=== PATIENT | female | born 1945 | race African-American/Black ===

== ENCOUNTER 2017-11-16 00:32 | Emergency (ER) | payer MEDICARE, BC ==
[~2017-11-16] VITALS: Ht 149.9 cm; Wt 50.0 kg
[~2017-11-16 00:32] MED LIST: ALBU18HF2 IH; ATEN50TA PO; ATOR20TA PO; CALC1TAB17 PO; CETI10CA2 PO; CHOL100046 PO; DIAZ10TA PO; DOXA4TAB2 PO; ESTR0.6264 PO; FOLI-43 PO; MECL-109 PO; MULT-783 PO; VIC PO; VILA10TA PO
[2017-11-16] MEDS ORDERED: BACITRACIN ZINC OINT UDPKT TOP ONE (03:00)
[2017-11-16] MEDS ORDERED: TETANUS, DIPHTHERIA, PERTUSSIS VAC/PF 0.5ML (>7YR OLD) IM ONE (03:00)
[2017-11-16] MEDS ORDERED: LIDOCAINE HCL 1% 20ML VIAL (Pyxis) INJ INFIL ONE (03:00)
[2017-11-16] MEDS ORDERED: LIDOCAINE HCL/EPINEPHRINE 1%-EPI 1:100,000 30 ML VIAL INFIL ONE (03:30)
[2017-11-16 05:26] VITALS: BP 143/67
== END 2017-11-16 05:29 | disposition home or self-care (01) ==
LOC: ER 00:32
DX: S01.511A Laceration without foreign body of lip, initial encounter (principal); I10 Essential (primary) hypertension; J45.909 Unspecified asthma, uncomplicated; M19.90 Unspecified osteoarthritis, unspecified site; Z88.8 Allergy status to other drugs, medicaments and biological substances; W01.0XXA Fall on same level from slipping, tripping and stumbling without subsequent striking against object, initial encounter; Y93.89 Activity, other specified; Y92.89 Other specified places as the place of occurrence of the external cause; Y99.8 Other external cause status
CPT/HCPCS: 12011; 90471; 90715; 99284; J3490; 99283

== ENCOUNTER 2018-09-26 13:50 | Inpatient (IN) | payer MEDICARE, BC ==
[~2018-09-26] VITALS: Ht 157.5 cm; Wt 46.7 kg
[2018-09-26] MEDS ORDERED: SODIUM CHLORIDE 0.9% 1000ML BAG (SEPSIS BOLUS) IV ONE (14:30)
[2018-09-26] MEDS ORDERED: LEVOFLOXACIN 750MG PREMIX 150 ML IV ONE (14:30)
[2018-09-26 15:23] LABS: CHLORIDE 99 mEq/L (98-107); HEMATOCRIT. 34.8 % (36.0-48.0); HEMOGLOBIN. 11.9 g/dL (12.0-16.0); MEAN CORPUSCULAR HEMOGLOBIN 30.6 pg (28.0-32.0); MEAN CORPUSCULAR VOLUME 89.8 fL (81.0-99.0); MEAN PLATELET VOLUME 8.2 fl (7.4-10.4); PLATELET 336 x1000/uL (130-400); RED BLOOD CELL COUNT 3.88 mill/uL (4.2-5.4); RED CELL DISTRIBUTION WIDTH 12.8 % (11.6-14.6)
[2018-09-26 15:26] LABS: INR 1.1; PARTIAL THROMBOPLASTIN TIME 28.7 sec (23.4-31.0); PROTHROMBIN TIME 10.8 sec (9.1-11.1)
[2018-09-26 16:02] LABS: PLATELET ESTIMATE NORMAL
[2018-09-26 18:59] LABS: CLARITY URINE TURBID (CLEAR); COLOR URINE YELLOW (YELLOW); KETONES URINE NEGATIVE (NEGATIVE); LEUKOCYTE ESTERASE URINE TRACE (NEGATIVE); NITRITE URINE NEGATIVE (NEGATIVE); OCCULT BLOOD URINE NEGATIVE (NEGATIVE); PROTEIN URINE NEGATIVE (NEGATIVE); SPECIFIC GRAVITY URINE 1.002 (1.005-1.030)
[2018-09-26 20:00] VITALS: BP 135/60
[2018-09-26] MEDS ORDERED: ACETAMINOPHEN 325MG TABLET PO PRN (20:45)
[2018-09-26 21:30] VITALS: BP 135/60
[2018-09-26] MEDS: CEFTRIAXONE 1 G PREMIX 50 ML IV SCH (23:05)
[2018-09-27] VITALS: BP 116/71
[2018-09-27] MEDS: AZITHROMYCIN 500 MG in DEXT 5% WATER 250 ML IV SCH ×2 (00:15→22:34)
[2018-09-27] MEDS ORDERED: CITA20SO PO (01:48)
[2018-09-27] MEDS ORDERED: COLC0.6C3 PO (01:48)
[2018-09-27] MEDS ORDERED: HYDR-3511 PO (01:49)
[2018-09-27 04:00] VITALS: BP 159/82
[2018-09-27 08:00] VITALS: BP 139/64
[2018-09-27 12:00] VITALS: BP 148/70
[2018-09-27] MEDS ORDERED: ATENOLOL 50 MG TABLET PO SCH (13:55)
[2018-09-27] MEDS ORDERED: FOLIC ACID 1MG TABLET PO SCH (14:00)
[2018-09-27] MEDS ORDERED: ATENOLOL 50 MG TABLET PO NR (14:15)
[2018-09-27] MEDS ORDERED: CITALOPRAM HYDROBROMIDE 40MG TABLET PO SCH (15:52)
[2018-09-27 16:00] VITALS: BP 172/86
[2018-09-27] MEDS: AMLODIPINE 5MG TABLET PO SCH (16:51)
[2018-09-27 20:00] VITALS: BP 119/63
[2018-09-27] MEDS: ATORVASTATIN CALCIUM 10MG TABLET PO SCH (21:03)
[2018-09-27] MEDS: FOLIC ACID 1MG TABLET PO SCH (21:04)
[2018-09-27] MEDS: CEFTRIAXONE 1 G PREMIX 50 ML IV SCH (22:11)
[2018-09-28 00:05] VITALS: BP 128/69
[2018-09-28] MEDS ORDERED: MECLIZINE 25MG TABLET PO PRN (03:30)
[2018-09-28] MEDS ORDERED: ALBUTEROL 6.7GM HFA INHALER ORI PRN (03:30)
[2018-09-28] MEDS ORDERED: HYDROCODONE/ACETAMINOPHEN 5/325MG TABLET PO PRN (03:30)
[2018-09-28 04:00] VITALS: BP 133/71
[2018-09-28] MEDS ORDERED: ALBUTEROL (0.083%) 2.5MG/3ML NEB HHN PRN (04:00)
[2018-09-28 07:06] LABS: HEMATOCRIT. 32.1 % (36.0-48.0); HEMOGLOBIN. 11.1 g/dL (12.0-16.0); MEAN CORPUSCULAR HEMOGLOBIN 30.7 pg (28.0-32.0); MEAN PLATELET VOLUME 7.9 fl (7.4-10.4); PLATELET 357 x1000/uL (130-400); RED BLOOD CELL COUNT 3.61 mill/uL (4.2-5.4); RED CELL DISTRIBUTION WIDTH 12.9 % (11.6-14.6)
[2018-09-28 07:34] LABS: CHLORIDE 104 mEq/L (98-107)
[2018-09-28 08:00] VITALS: BP 132/87
[2018-09-28] MEDS: CHOLECALCIFEROL (D3) 1000 UNIT TABLET PO SCH (10:27)
[2018-09-28] MEDS: FOLIC ACID 1MG TABLET PO SCH ×2 (10:28→20:54)
[2018-09-28] MEDS: ENOXAPARIN 40MG/0.4ML SYR SUBCUT SCH (10:28)
[2018-09-28] MEDS: ATENOLOL 50 MG TABLET PO SCH (10:28)
[2018-09-28] MEDS: AMLODIPINE 5MG TABLET PO SCH (10:28)
[2018-09-28 10:31] LABS: PLATELET ESTIMATE NORMAL
[2018-09-28] MEDS ORDERED: IOHEXOL-300 100 ML BOTTLE ONE (11:00)
[2018-09-28 12:00] VITALS: BP 122/71
[2018-09-28] MEDS ORDERED: DIAZEPAM 5 MG TABLET PO PRN (14:00)
[2018-09-28 16:00] VITALS: BP 148/84
[2018-09-28] MEDS ORDERED: MAGNESIUM 2 G PREMIX 50 ML IV NR (20:00)
[2018-09-28 20:14] VITALS: BP 130/67
[2018-09-28] MEDS: CITALOPRAM HYDROBROMIDE 40MG TABLET PO SCH (20:53)
[2018-09-28] MEDS: ESTROGENS CONJUGATED 0.3 MG PO SCH (20:54)
[2018-09-28] MEDS: ATORVASTATIN CALCIUM 10MG TABLET PO SCH (20:54)
[2018-09-28] MEDS: DOXAZOSIN MESYLATE 2MG TABLET PO SCH (20:54)
[2018-09-28] MEDS: COLCHICINE 0.6MG TABLET PO SCH ×2 (20:54→21:00)
[2018-09-28] MEDS ORDERED: ATORVASTATIN CALCIUM 10MG TABLET PO SCH (21:00)
[2018-09-28] MEDS: DIPHENHYDRAMINE 25MG CAPSULE PO SCH (21:00)
[2018-09-28] MEDS: AZITHROMYCIN 500 MG TABLET PO SCH (22:16)
[2018-09-28] MEDS: CEFTRIAXONE 1 G PREMIX 50 ML IV SCH (22:16)
[2018-09-29] VITALS: BP 107/48
[2018-09-29 04:00] VITALS: BP 117/59
[2018-09-29 06:51] LABS: HEMATOCRIT. 31.4 % (36.0-48.0); HEMOGLOBIN. 10.9 g/dL (12.0-16.0); MEAN CORPUSCULAR HEMOGLOBIN 30.9 pg (28.0-32.0); MEAN CORPUSCULAR VOLUME 89.1 fL (81.0-99.0); PLATELET 362 x1000/uL (130-400); RED BLOOD CELL COUNT 3.52 mill/uL (4.2-5.4); RED CELL DISTRIBUTION WIDTH 12.7 % (11.6-14.6)
[2018-09-29 07:06] LABS: CHLORIDE 105 mEq/L (98-107)
[2018-09-29 08:00] VITALS: BP 117/54
[2018-09-29] MEDS: FOLIC ACID 1MG TABLET PO SCH ×2 (08:45→22:32)
[2018-09-29] MEDS: CITALOPRAM HYDROBROMIDE 40MG TABLET PO SCH (08:45)
[2018-09-29] MEDS ORDERED: POTASSIUM CHLORIDE 20MEQ TABLET SR PO NR (08:45)
[2018-09-29] MEDS: ENOXAPARIN 40MG/0.4ML SYR SUBCUT SCH (08:45)
[2018-09-29] MEDS: AMLODIPINE 5MG TABLET PO SCH (08:46)
[2018-09-29] MEDS: CHOLECALCIFEROL (D3) 1000 UNIT TABLET PO SCH (08:48)
[2018-09-29] MEDS: ATENOLOL 50 MG TABLET PO SCH (09:00)
[2018-09-29 13:31] LABS: PLATELET ESTIMATE NORMAL
[2018-09-29 16:00] VITALS: BP 118/58
[2018-09-29 20:00] VITALS: BP 138/60
[2018-09-29] MEDS: COLCHICINE 0.6MG TABLET PO SCH (21:00)
[2018-09-29] MEDS: DIPHENHYDRAMINE 25MG CAPSULE PO SCH (21:00)
[2018-09-29] MEDS: DOXAZOSIN MESYLATE 2MG TABLET PO SCH (21:00)
[2018-09-29 21:44] LABS: CREATINE KINASE 69 IU/L (26-192)
[2018-09-29] MEDS: CEFTRIAXONE 1 G PREMIX 50 ML IV SCH (22:24)
[2018-09-29] MEDS: ATORVASTATIN CALCIUM 10MG TABLET PO SCH (22:32)
[2018-09-29] MEDS: ESTROGENS CONJUGATED 0.3 MG PO SCH (22:32)
[2018-09-29] MEDS: AZITHROMYCIN 500 MG TABLET PO SCH (22:32)
[2018-09-30] VITALS: BP 114/51
[2018-09-30 04:00] VITALS: BP 123/62
[2018-09-30 07:10] LABS: HEMATOCRIT. 31.9 % (36.0-48.0); HEMOGLOBIN. 10.8 g/dL (12.0-16.0); MEAN CORPUSCULAR HEMOGLOBIN 30.3 pg (28.0-32.0); MEAN CORPUSCULAR VOLUME 89.8 fL (81.0-99.0); PLATELET 367 x1000/uL (130-400); RED BLOOD CELL COUNT 3.56 mill/uL (4.2-5.4); RED CELL DISTRIBUTION WIDTH 12.8 % (11.6-14.6)
[2018-09-30 07:59] LABS: CHLORIDE 105 mEq/L (98-107)
[2018-09-30 08:00] VITALS: BP 126/59
[2018-09-30 09:01] LABS: PLATELET ESTIMATE NORMAL
[2018-09-30] MEDS: ENOXAPARIN 40MG/0.4ML SYR SUBCUT SCH (09:14)
[2018-09-30] MEDS: ATENOLOL 50 MG TABLET PO SCH (09:15)
[2018-09-30] MEDS: CHOLECALCIFEROL (D3) 1000 UNIT TABLET PO SCH (09:15)
[2018-09-30] MEDS: FOLIC ACID 1MG TABLET PO SCH (09:15)
[2018-09-30] MEDS: AMLODIPINE 5MG TABLET PO SCH (09:15)
[2018-09-30] MEDS: CITALOPRAM HYDROBROMIDE 40MG TABLET PO SCH (09:15)
[2018-09-30 12:00] VITALS: BP 125/55
[2018-09-30 12:49] VITALS: BP 125/55
== END 2018-09-30 16:40 | DRG 193 ==
LOC: ER 14:25 → 5WST 16:22 → EDBEDREQ 16:26 → EDBEDREQTM 16:26 → EDBEDREQ 16:29 → EDBEDREQTM 16:29 → ENRESERV 17:31 → 7WST 09-27 15:20
PROVIDERS: ADMIT Internal Medicine; ATTEND Internal Medicine
DX: J18.1 Lobar pneumonia, unspecified organism (principal); G82.50 Quadriplegia, unspecified; J44.1 Chronic obstructive pulmonary disease with (acute) exacerbation; J44.0 Chronic obstructive pulmonary disease with (acute) lower respiratory infection; N39.0 Urinary tract infection, site not specified; I95.9 Hypotension, unspecified; J18.0 Bronchopneumonia, unspecified organism; D63.8 Anemia in other chronic diseases classified elsewhere; D72.1 Eosinophilia; E78.5 Hyperlipidemia, unspecified; M48.02 Spinal stenosis, cervical region; M48.061 Spinal stenosis, lumbar region without neurogenic claudication; E86.0 Dehydration; E87.6 Hypokalemia; F32.9 Major depressive disorder, single episode, unspecified; F41.1 Generalized anxiety disorder; I11.9 Hypertensive heart disease without heart failure; K21.9 Gastro-esophageal reflux disease without esophagitis; G62.9 Polyneuropathy, unspecified; G89.29 Other chronic pain; R26.9 Unspecified abnormalities of gait and mobility; Z88.6 Allergy status to analgesic agent; Z79.51 Long term (current) use of inhaled steroids; Z90.710 Acquired absence of both cervix and uterus; Z79.1 Long term (current) use of non-steroidal anti-inflammatories (NSAID); Z79.899 Other long term (current) drug therapy; Z82.49 Family history of ischemic heart disease and other diseases of the circulatory system
CPT/HCPCS: 36415; 70551; 71045; 71250; 72141; 72146; 72148; 80048; 82550; 83605; 83735; 83880; 84100; 84145; 84484; 85007; 85027; 85651; 93005; 93306; 93971; 94640; 96374; 97110; 97116; 97162; 97166; 99285; J0456; J0696; J1650; J1956; J3475; J7030; J7050; J7060; J7611; Q0163; Q9967

== ENCOUNTER 2018-09-30 16:35 | Inpatient (IN) | payer MEDICARE, BC ==
[~2018-09-30] VITALS: Ht 149.9 cm; Wt 48.6 kg
[2018-09-30 16:30] VITALS: BP 122/70
[~2018-09-30 16:35] MED LIST changes: +CITA20SO PO; +COLC0.6C3 PO; +HYDR-3511 PO; -MULT-783 PO; -VIC PO; -VILA10TA PO
[2018-09-30] MEDS ORDERED: DIAZEPAM 5 MG TABLET PO PRN (18:00)
[2018-09-30] MEDS ORDERED: HYDROCODONE/ACETAMINOPHEN 5/325MG TABLET PO PRN (18:00)
[2018-09-30 18:21] VITALS: BP 122/70
[2018-09-30 20:00] VITALS: BP 124/63
[2018-09-30] MEDS: COLCHICINE 0.6MG TABLET PO SCH (21:00)
[2018-09-30] MEDS: ESTROGENS CONJUGATED 0.3 MG PO SCH (22:34)
[2018-09-30] MEDS: AZITHROMYCIN 500 MG TABLET PO SCH (22:34)
[2018-09-30] MEDS: ATORVASTATIN CALCIUM 10MG TABLET PO SCH (22:34)
[2018-09-30] MEDS: DIPHENHYDRAMINE 25MG CAPSULE PO SCH (22:35)
[2018-09-30] MEDS: DOXAZOSIN MESYLATE 2MG TABLET PO SCH (22:35)
[2018-09-30] MEDS: FOLIC ACID 1MG TABLET PO SCH (22:36)
[2018-09-30] MEDS: CEFTRIAXONE 1 G PREMIX 50 ML IV SCH (22:38)
[2018-10-01] MEDS: ALBUTEROL (0.083%) 2.5MG/3ML NEB HHN PRN ×2 (00:30→21:45)
[2018-10-01 01:24] LABS: CLARITY URINE CLEAR (CLEAR); COLOR URINE YELLOW (YELLOW); KETONES URINE NEGATIVE (NEGATIVE); LEUKOCYTE ESTERASE URINE TRACE (NEGATIVE); NITRITE URINE NEGATIVE (NEGATIVE); OCCULT BLOOD URINE NEGATIVE (NEGATIVE); PROTEIN URINE NEGATIVE (NEGATIVE); SPECIFIC GRAVITY URINE 1.023 (1.005-1.030); UROBILINOGEN URINE 0.2 E.U./dL (0.2-1.0)
[2018-10-01 08:00] VITALS: BP 105/52
[2018-10-01 08:01] LABS: BASOPHILS % 0.2 % (0.0-2.0); EOSINOPHILS % 10.6 % (0.0-5.0); HEMOGLOBIN. 10.5 g/dL (12.0-16.0); MEAN CORPUSCULAR HEMOGLOBIN 30.5 pg (28.0-32.0); MEAN CORPUSCULAR VOLUME 89.6 fL (81.0-99.0); MONOCYTES % 9.6 % (2.0-8.0); NEUTROPHILS % 63.6 % (40.0-76.0); PLATELET 340 x1000/uL (130-400); RED BLOOD CELL COUNT 3.46 mill/uL (4.2-5.4); RED CELL DISTRIBUTION WIDTH 12.9 % (11.6-14.6)
[2018-10-01 08:05] LABS: CHLORIDE 103 mEq/L (98-107)
[2018-10-01 08:14] LABS: PHOSPHORUS 3.7 mg/dL (2.5-4.9)
[2018-10-01] MEDS: AMLODIPINE 5MG TABLET PO SCH (09:00)
[2018-10-01] MEDS: ATENOLOL 50 MG TABLET PO SCH (09:00)
[2018-10-01] MEDS: CHOLECALCIFEROL (D3) 1000 UNIT TABLET PO SCH (09:04)
[2018-10-01] MEDS: FOLIC ACID 1MG TABLET PO SCH ×2 (09:04→22:09)
[2018-10-01] MEDS: ENOXAPARIN 40MG/0.4ML SYR SUBCUT SCH (09:05)
[2018-10-01] MEDS: CITALOPRAM HYDROBROMIDE 20MG TABLET PO SCH (09:30)
[2018-10-01] MEDS ORDERED: CLOPIDOGREL 75MG TABLET PO SCH (10:30)
[2018-10-01 20:00] VITALS: BP 121/56
[2018-10-01] MEDS: COLCHICINE 0.6MG TABLET PO SCH (21:00)
[2018-10-01] MEDS: DOXAZOSIN MESYLATE 2MG TABLET PO SCH (21:00)
[2018-10-01] MEDS: DIPHENHYDRAMINE 25MG CAPSULE PO SCH (22:08)
[2018-10-01] MEDS: CEFTRIAXONE 1 G PREMIX 50 ML IV SCH (22:08)
[2018-10-01] MEDS: ATORVASTATIN CALCIUM 10MG TABLET PO SCH (22:09)
[2018-10-01] MEDS: ESTROGENS CONJUGATED 0.3 MG PO SCH (22:09)
[2018-10-01] MEDS: AZITHROMYCIN 500 MG TABLET PO SCH (22:12)
[2018-10-02 08:06] VITALS: BP 101/51
[2018-10-02] MEDS: AMLODIPINE 5MG TABLET PO SCH (09:00)
[2018-10-02] MEDS: ATENOLOL 50 MG TABLET PO SCH (09:00)
[2018-10-02] MEDS: CITALOPRAM HYDROBROMIDE 20MG TABLET PO SCH (10:32)
[2018-10-02] MEDS: FOLIC ACID 1MG TABLET PO SCH ×2 (10:32→20:42)
[2018-10-02] MEDS: CHOLECALCIFEROL (D3) 1000 UNIT TABLET PO SCH (10:32)
[2018-10-02] MEDS: CLOPIDOGREL 75MG TABLET PO SCH (10:32)
[2018-10-02] MEDS: ENOXAPARIN 40MG/0.4ML SYR SUBCUT SCH (10:33)
[2018-10-02 20:00] VITALS: BP 130/60
[2018-10-02] MEDS ORDERED: BISACODYL 5MG TABLET PO PRN (20:15)
[2018-10-02] MEDS: ESTROGENS CONJUGATED 0.3 MG PO SCH (20:42)
[2018-10-02] MEDS: ATORVASTATIN CALCIUM 10MG TABLET PO SCH (20:42)
[2018-10-02] MEDS: COLCHICINE 0.6MG TABLET PO SCH (20:42)
[2018-10-02] MEDS: DIPHENHYDRAMINE 25MG CAPSULE PO SCH (20:42)
[2018-10-02] MEDS: DOXAZOSIN MESYLATE 2MG TABLET PO SCH (20:43)
[2018-10-02] MEDS: AZITHROMYCIN 500 MG TABLET PO SCH (21:14)
[2018-10-02] MEDS: ALBUTEROL (0.083%) 2.5MG/3ML NEB HHN PRN (21:53)
[2018-10-03] MEDS: ACETAMINOPHEN 325MG TABLET PO PRN (04:09)
[2018-10-03 08:00] VITALS: BP 115/57
[2018-10-03] MEDS: CHOLECALCIFEROL (D3) 1000 UNIT TABLET PO SCH (08:31)
[2018-10-03] MEDS: CLOPIDOGREL 75MG TABLET PO SCH (08:31)
[2018-10-03] MEDS: FOLIC ACID 1MG TABLET PO SCH ×2 (08:31→20:37)
[2018-10-03] MEDS: CITALOPRAM HYDROBROMIDE 20MG TABLET PO SCH (08:31)
[2018-10-03] MEDS: ATENOLOL 50 MG TABLET PO SCH (08:32)
[2018-10-03] MEDS: ENOXAPARIN 30MG/0.3ML SYR SUBCUT SCH (08:32)
[2018-10-03] MEDS: AMLODIPINE 5MG TABLET PO SCH (08:32)
[2018-10-03 20:00] VITALS: BP 127/62
[2018-10-03] MEDS: ATORVASTATIN CALCIUM 10MG TABLET PO SCH (20:37)
[2018-10-03] MEDS: DIPHENHYDRAMINE 25MG CAPSULE PO SCH (20:37)
[2018-10-03] MEDS: DOXAZOSIN MESYLATE 2MG TABLET PO SCH (20:37)
[2018-10-03] MEDS: ESTROGENS CONJUGATED 0.3 MG PO SCH (20:37)
[2018-10-03] MEDS: COLCHICINE 0.6MG TABLET PO SCH (20:38)
[2018-10-03] MEDS: AZITHROMYCIN 500 MG TABLET PO SCH (21:08)
[2018-10-03] MEDS: ALBUTEROL (0.083%) 2.5MG/3ML NEB HHN PRN (21:18)
[2018-10-04] MEDS: ALBUTEROL (0.083%) 2.5MG/3ML NEB HHN PRN ×3 (03:14→21:45)
[2018-10-04 06:45] LABS: CHLORIDE 104 mEq/L (98-107); HEMATOCRIT. 29.9 % (36.0-48.0); HEMOGLOBIN. 10.3 g/dL (12.0-16.0); MEAN CORPUSCULAR HEMOGLOBIN 30.8 pg (28.0-32.0); MEAN CORPUSCULAR VOLUME 89.3 fL (81.0-99.0); PLATELET 346 x1000/uL (130-400); RED BLOOD CELL COUNT 3.34 mill/uL (4.2-5.4); RED CELL DISTRIBUTION WIDTH 13.1 % (11.6-14.6)
[2018-10-04 08:36] VITALS: BP 107/54
[2018-10-04] MEDS: AMLODIPINE 5MG TABLET PO SCH (09:00)
[2018-10-04] MEDS: ATENOLOL 50 MG TABLET PO SCH (09:00)
[2018-10-04] MEDS: CITALOPRAM HYDROBROMIDE 20MG TABLET PO SCH (09:15)
[2018-10-04] MEDS: CLOPIDOGREL 75MG TABLET PO SCH (09:15)
[2018-10-04] MEDS: CHOLECALCIFEROL (D3) 1000 UNIT TABLET PO SCH (09:15)
[2018-10-04] MEDS: FOLIC ACID 1MG TABLET PO SCH ×2 (09:16→20:46)
[2018-10-04] MEDS: ENOXAPARIN 30MG/0.3ML SYR SUBCUT SCH (09:16)
[2018-10-04 15:45] LABS: PLATELET ESTIMATE NORMAL
[2018-10-04 20:00] VITALS: BP 122/63
[2018-10-04] MEDS: ATORVASTATIN CALCIUM 10MG TABLET PO SCH (20:44)
[2018-10-04] MEDS: DIPHENHYDRAMINE 25MG CAPSULE PO SCH (20:44)
[2018-10-04] MEDS: ESTROGENS CONJUGATED 0.3 MG PO SCH (20:44)
[2018-10-04] MEDS: COLCHICINE 0.6MG TABLET PO SCH (20:46)
[2018-10-04] MEDS: DOXAZOSIN MESYLATE 2MG TABLET PO SCH (20:46)
[2018-10-05 08:00] VITALS: BP 119/64
[2018-10-05 09:31] VITALS: BP 131/64
[2018-10-05 09:59] VITALS: BP 107/61
[2018-10-05] MEDS: FOLIC ACID 1MG TABLET PO SCH ×2 (10:01→20:55)
[2018-10-05] MEDS: CHOLECALCIFEROL (D3) 1000 UNIT TABLET PO SCH (10:01)
[2018-10-05] MEDS: ATENOLOL 50 MG TABLET PO SCH (10:02)
[2018-10-05] MEDS: CLOPIDOGREL 75MG TABLET PO SCH (10:03)
[2018-10-05] MEDS: AMLODIPINE 5MG TABLET PO SCH (10:03)
[2018-10-05] MEDS: CITALOPRAM HYDROBROMIDE 20MG TABLET PO SCH (10:05)
[2018-10-05] MEDS: ENOXAPARIN 30MG/0.3ML SYR SUBCUT SCH (10:06)
[2018-10-05] MEDS ORDERED: HYDROCODONE/ACETAMINOPHEN 5/325MG TABLET PO PRN (19:00)
[2018-10-05] MEDS ORDERED: DIAZEPAM 5 MG TABLET PO PRN (19:00)
[2018-10-05 20:00] VITALS: BP 124/59
[2018-10-05] MEDS: DIPHENHYDRAMINE 25MG CAPSULE PO SCH (20:52)
[2018-10-05] MEDS: COLCHICINE 0.6MG TABLET PO SCH (20:52)
[2018-10-05] MEDS: ATORVASTATIN CALCIUM 10MG TABLET PO SCH (20:52)
[2018-10-05] MEDS: DOXAZOSIN MESYLATE 2MG TABLET PO SCH (20:52)
[2018-10-05] MEDS: ESTROGENS CONJUGATED 0.3 MG PO SCH (20:52)
[2018-10-05] MEDS: ALBUTEROL (0.083%) 2.5MG/3ML NEB HHN PRN (21:11)
[2018-10-06 08:00] VITALS: BP 137/59
[2018-10-06] MEDS: ATENOLOL 50 MG TABLET PO SCH (09:00)
[2018-10-06] MEDS: AMLODIPINE 5MG TABLET PO SCH (09:00)
[2018-10-06] MEDS: CITALOPRAM HYDROBROMIDE 20MG TABLET PO SCH (09:15)
[2018-10-06] MEDS: CHOLECALCIFEROL (D3) 1000 UNIT TABLET PO SCH (09:15)
[2018-10-06] MEDS: FOLIC ACID 1MG TABLET PO SCH ×2 (09:15→20:37)
[2018-10-06] MEDS: CLOPIDOGREL 75MG TABLET PO SCH (09:15)
[2018-10-06] MEDS: ENOXAPARIN 30MG/0.3ML SYR SUBCUT SCH (09:15)
[2018-10-06 20:00] VITALS: BP 117/60
[2018-10-06] MEDS: ALBUTEROL (0.083%) 2.5MG/3ML NEB HHN PRN (20:00)
[2018-10-06] MEDS: COLCHICINE 0.6MG TABLET PO SCH (20:36)
[2018-10-06] MEDS: ESTROGENS CONJUGATED 0.3 MG PO SCH (20:37)
[2018-10-06] MEDS: DOXAZOSIN MESYLATE 2MG TABLET PO SCH (20:37)
[2018-10-06] MEDS: ATORVASTATIN CALCIUM 10MG TABLET PO SCH (20:37)
[2018-10-06] MEDS: DIPHENHYDRAMINE 25MG CAPSULE PO SCH (20:37)
[2018-10-07 08:06] VITALS: BP 115/63
[2018-10-07] MEDS: ENOXAPARIN 30MG/0.3ML SYR SUBCUT SCH (09:08)
[2018-10-07] MEDS: CHOLECALCIFEROL (D3) 1000 UNIT TABLET PO SCH (09:09)
[2018-10-07] MEDS: AMLODIPINE 5MG TABLET PO SCH (09:09)
[2018-10-07] MEDS: ATENOLOL 50 MG TABLET PO SCH (09:09)
[2018-10-07] MEDS: CITALOPRAM HYDROBROMIDE 20MG TABLET PO SCH (09:09)
[2018-10-07] MEDS: FOLIC ACID 1MG TABLET PO SCH ×2 (09:09→20:43)
[2018-10-07] MEDS: CLOPIDOGREL 75MG TABLET PO SCH (09:09)
[2018-10-07 20:08] VITALS: BP 116/55
[2018-10-07] MEDS: ESTROGENS CONJUGATED 0.3 MG PO SCH (20:42)
[2018-10-07] MEDS: ATORVASTATIN CALCIUM 10MG TABLET PO SCH (20:42)
[2018-10-07] MEDS: DOXAZOSIN MESYLATE 2MG TABLET PO SCH (20:43)
[2018-10-07] MEDS: DIPHENHYDRAMINE 25MG CAPSULE PO SCH (20:43)
[2018-10-07] MEDS: COLCHICINE 0.6MG TABLET PO SCH (20:43)
[2018-10-07] MEDS: MECLIZINE 25MG TABLET PO PRN (21:41)
[2018-10-08 08:00] VITALS: BP 108/55
[2018-10-08] MEDS: AMLODIPINE 5MG TABLET PO SCH (09:00)
[2018-10-08] MEDS: ATENOLOL 50 MG TABLET PO SCH (09:00)
[2018-10-08] MEDS: CLOPIDOGREL 75MG TABLET PO SCH (09:11)
[2018-10-08] MEDS: CITALOPRAM HYDROBROMIDE 20MG TABLET PO SCH (09:11)
[2018-10-08] MEDS: FOLIC ACID 1MG TABLET PO SCH ×2 (09:12→20:31)
[2018-10-08] MEDS: CHOLECALCIFEROL (D3) 1000 UNIT TABLET PO SCH (09:12)
[2018-10-08] MEDS: ENOXAPARIN 30MG/0.3ML SYR SUBCUT SCH (09:13)
[2018-10-08] MEDS ORDERED: ALBUTEROL 6.7GM HFA INHALER ORI PRN (11:30)
[2018-10-08] MEDS ORDERED: ALBUTEROL (0.083%) 2.5MG/3ML NEB HHN PRN (11:30)
[2018-10-08 20:00] VITALS: BP 121/60
[2018-10-08] MEDS: COLCHICINE 0.6MG TABLET PO SCH (20:21)
[2018-10-08] MEDS: ATORVASTATIN CALCIUM 10MG TABLET PO SCH (20:31)
[2018-10-08] MEDS: DIPHENHYDRAMINE 25MG CAPSULE PO SCH (20:31)
[2018-10-08] MEDS: ESTROGENS CONJUGATED 0.3 MG PO SCH (20:31)
[2018-10-08] MEDS: DOXAZOSIN MESYLATE 2MG TABLET PO SCH (20:32)
[2018-10-08] MEDS: MECLIZINE 25MG TABLET PO PRN (21:21)
[2018-10-09 07:18] LABS: HEMATOCRIT. 31.4 % (36.0-48.0); HEMOGLOBIN. 10.6 g/dL (12.0-16.0); MEAN CORPUSCULAR HEMOGLOBIN 30.3 pg (28.0-32.0); MEAN CORPUSCULAR VOLUME 89.7 fL (81.0-99.0); MEAN PLATELET VOLUME 8.4 fl (7.4-10.4); PLATELET 371 x1000/uL (130-400); RED CELL DISTRIBUTION WIDTH 12.8 % (11.6-14.6)
[2018-10-09 08:06] VITALS: BP 119/66
[2018-10-09] MEDS: CHOLECALCIFEROL (D3) 1000 UNIT TABLET PO SCH (08:10)
[2018-10-09] MEDS: ENOXAPARIN 30MG/0.3ML SYR SUBCUT SCH (08:10)
[2018-10-09] MEDS: CLOPIDOGREL 75MG TABLET PO SCH (08:10)
[2018-10-09] MEDS: ATENOLOL 50 MG TABLET PO SCH (08:10)
[2018-10-09] MEDS: AMLODIPINE 5MG TABLET PO SCH (08:11)
[2018-10-09] MEDS: CITALOPRAM HYDROBROMIDE 20MG TABLET PO SCH (08:11)
[2018-10-09] MEDS: FOLIC ACID 1MG TABLET PO SCH ×2 (08:11→21:28)
[2018-10-09 08:27] LABS: CHLORIDE 105 mEq/L (98-107)
[2018-10-09] MEDS ORDERED: ONDANSETRON 4MG ODT PO PRN (11:00)
[2018-10-09 11:05] VITALS: BP 119/66
[2018-10-09 14:20] LABS: PLATELET ESTIMATE NORMAL
[2018-10-09 16:26] LABS: BASOPHILS % 0.9 % (0.0-2.0); EOSINOPHILS % 3.5 % (0.0-5.0); HEMATOCRIT. 34.1 % (36.0-48.0); HEMOGLOBIN. 11.4 g/dL (12.0-16.0); LYMPHOCYTES % 24.3 % (20.0-50.0); MEAN CORPUSCULAR HEMOGLOBIN 30.4 pg (28.0-32.0); MEAN CORPUSCULAR VOLUME 90.6 fL (81.0-99.0); MEAN PLATELET VOLUME 8.2 fl (7.4-10.4); MONOCYTES % 6.3 % (2.0-8.0); PLATELET 406 x1000/uL (130-400); RED BLOOD CELL COUNT 3.76 mill/uL (4.2-5.4); RED CELL DISTRIBUTION WIDTH 12.9 % (11.6-14.6)
[2018-10-09 16:34] LABS: CHLORIDE 105 mEq/L (98-107)
[2018-10-09 20:00] VITALS: BP 112/60
[2018-10-09] MEDS: DIPHENHYDRAMINE 25MG CAPSULE PO SCH (21:27)
[2018-10-09] MEDS: ACETAMINOPHEN 325MG TABLET PO PRN (21:27)
[2018-10-09] MEDS: COLCHICINE 0.6MG TABLET PO SCH (21:27)
[2018-10-09] MEDS: DOXAZOSIN MESYLATE 2MG TABLET PO SCH (21:28)
[2018-10-09] MEDS: ESTROGENS CONJUGATED 0.3 MG PO SCH (21:28)
[2018-10-09] MEDS: ATORVASTATIN CALCIUM 10MG TABLET PO SCH (21:28)
[2018-10-10 08:01] VITALS: BP 127/56
[2018-10-10] MEDS: ATENOLOL 50 MG TABLET PO SCH (09:00)
[2018-10-10] MEDS: AMLODIPINE 5MG TABLET PO SCH (09:00)
[2018-10-10] MEDS: FOLIC ACID 1MG TABLET PO SCH ×2 (09:21→22:06)
[2018-10-10] MEDS: CITALOPRAM HYDROBROMIDE 20MG TABLET PO SCH (09:21)
[2018-10-10] MEDS: CHOLECALCIFEROL (D3) 1000 UNIT TABLET PO SCH (09:22)
[2018-10-10] MEDS: ENOXAPARIN 30MG/0.3ML SYR SUBCUT SCH (09:22)
[2018-10-10] MEDS: CLOPIDOGREL 75MG TABLET PO SCH (09:22)
[2018-10-10 20:00] VITALS: BP 121/54
[2018-10-10] MEDS: DIPHENHYDRAMINE 25MG CAPSULE PO SCH (22:05)
[2018-10-10] MEDS: ESTROGENS CONJUGATED 0.3 MG PO SCH (22:05)
[2018-10-10] MEDS: ATORVASTATIN CALCIUM 10MG TABLET PO SCH (22:05)
[2018-10-10] MEDS: COLCHICINE 0.6MG TABLET PO SCH (22:06)
[2018-10-10] MEDS: DOXAZOSIN MESYLATE 2MG TABLET PO SCH (22:06)
[2018-10-11] MEDS: ACETAMINOPHEN 325MG TABLET PO PRN (01:04)
[2018-10-11 07:02] LABS: BASOPHILS % 1.1 % (0.0-2.0); EOSINOPHILS % 10.8 % (0.0-5.0); HEMOGLOBIN. 10.7 g/dL (12.0-16.0); LYMPHOCYTES % 39.6 % (20.0-50.0); MEAN CORPUSCULAR HEMOGLOBIN 29.9 pg (28.0-32.0); MEAN CORPUSCULAR VOLUME 89.8 fL (81.0-99.0); MEAN PLATELET VOLUME 8.3 fl (7.4-10.4); NEUTROPHILS % 36.5 % (40.0-76.0); PLATELET 365 x1000/uL (130-400); RED BLOOD CELL COUNT 3.57 mill/uL (4.2-5.4); RED CELL DISTRIBUTION WIDTH 12.9 % (11.6-14.6)
[2018-10-11 07:13] LABS: CHLORIDE 105 mEq/L (98-107)
[2018-10-11 07:50] VITALS: BP 112/64
[2018-10-11] MEDS: FOLIC ACID 1MG TABLET PO SCH (08:23)
[2018-10-11] MEDS: AMLODIPINE 5MG TABLET PO SCH (08:23)
[2018-10-11] MEDS: CLOPIDOGREL 75MG TABLET PO SCH (08:23)
[2018-10-11] MEDS: CITALOPRAM HYDROBROMIDE 20MG TABLET PO SCH (08:23)
[2018-10-11] MEDS: ATENOLOL 50 MG TABLET PO SCH (08:23)
[2018-10-11] MEDS: CHOLECALCIFEROL (D3) 1000 UNIT TABLET PO SCH (08:23)
[2018-10-11] MEDS: ENOXAPARIN 30MG/0.3ML SYR SUBCUT SCH (08:24)
[2018-10-11 12:42] VITALS: BP 112/64
[2018-10-12 13:06] LABS: A/G RATIO 0.9 (0.7-1.7); ALBUMIN 2.8 g/dL (2.9-4.4); ALPHA-1-GLOBULIN 0.3 g/dL (0.0-0.4); ALPHA-2-GLOBULIN 0.7 g/dL (0.4-1.0); BETA GLOBULIN 1.3 g/dL (0.7-1.3); GLOBULIN TOTAL 3.2 g/dL (2.2-3.9); M-SPIKE Not Observed g/dL (Not Observed)
[2019-01-06] MEDS ORDERED: CLOP75TA16 MT (23:14)
[2019-01-06] MEDS ORDERED: HYDR-3511 PO (23:14)
[2019-01-06] MEDS ORDERED: B50 MT (23:14)
[2019-01-06] MEDS ORDERED: MOME13HF INH (23:53)
[2019-01-07] MEDS ORDERED: DOXA2TAB MT (08:11)
== END 2018-10-11 14:30 | DRG 194 ==
PROVIDERS: ADMIT Psychiatry & Neurology Neurology; ATTEND Internal Medicine
DX: J18.9 Pneumonia, unspecified organism (principal); J44.1 Chronic obstructive pulmonary disease with (acute) exacerbation; J44.0 Chronic obstructive pulmonary disease with (acute) lower respiratory infection; F33.1 Major depressive disorder, recurrent, moderate; M48.02 Spinal stenosis, cervical region; E78.5 Hyperlipidemia, unspecified; G62.9 Polyneuropathy, unspecified; G89.29 Other chronic pain; M54.5 Low back pain; E53.8 Deficiency of other specified B group vitamins; Z79.899 Other long term (current) drug therapy; F41.9 Anxiety disorder, unspecified; I25.10 Atherosclerotic heart disease of native coronary artery without angina pectoris; I10 Essential (primary) hypertension; Z88.8 Allergy status to other drugs, medicaments and biological substances; D72.1 Eosinophilia; E87.6 Hypokalemia; M47.814 Spondylosis without myelopathy or radiculopathy, thoracic region; M47.817 Spondylosis without myelopathy or radiculopathy, lumbosacral region
CPT/HCPCS: 36415; 71046; 73130; 73590; 80048; 83735; 84100; 84155; 84165; 85007; 85027; 85651; 94640; 97110; 97116; 97162; 97167; 97530; 97535; J0696; J1650; J7050; J7611; J8597; Q0163

== ENCOUNTER 2024-04-17 20:40 | Emergency (ER) | payer MEDICARE, BC ==
[~2024-04-17] VITALS: Ht 149.9 cm; Wt 50.0 kg
[~2024-04-17 20:40] MED LIST changes: +B50 MT; -CITA20SO PO; +CITA20SO2 PO; +CLOP-31 MT; -COLC0.6C3 PO; +DIAZ-570 PO; -DIAZ10TA PO; +DOXA-14 MT; +DOXA-15 PO; -DOXA4TAB2 PO; -HYDR-3511 PO; +HYDR-3512 PO; -MECL-109 PO; +MECL-299 PO; +MOME13HF11 INH
[2024-04-17 21:05] VITALS: O2SAT 98
[2024-04-17 21:43] LABS: BASOPHILS % 0.7 % (0.0-2.0); EOSINOPHILS % 13.3 % (0.0-5.0); HEMATOCRIT. 39.9 % (36.0-48.0); HEMOGLOBIN. 13.4 g/dL (12.0-16.0); LYMPHOCYTES % 29.2 % (20.0-50.0); MEAN CORPUSCULAR HEMOGLOBIN 32.3 pg (28.0-32.0); MEAN CORPUSCULAR HGB CONC 33.6 g/dL (31.0-37.0); MEAN CORPUSCULAR VOLUME 96.1 fL (81.0-99.0); MEAN PLATELET VOLUME 7.5 fl (7.4-10.4); MONOCYTES % 10.6 % (2.0-8.0); NEUTROPHILS % 46.2 % (40.0-76.0); PLATELET 265 x1000/uL (130-400); RED BLOOD CELL COUNT 4.16 mill/uL (4.2-5.4); RED CELL DISTRIBUTION WIDTH 12.9 % (11.6-14.6); WHITE BLOOD COUNT 4.4 x1000/uL (4.5-11.0)
[2024-04-17 21:53] LABS: CHLORIDE 106 mEq/L (98-107); SODIUM 139 mEq/L (136-145)
[2024-04-17 21:54] LABS: CALCIUM 9.7 mg/dL (8.7-10.4); CARBON DIOXIDE 29 mEq/L (21-32)
[2024-04-17 21:59] LABS: GLUCOSE 101 mg/dL (70-105); UREA NITROGEN BLOOD 15 mg/dL (9-23)
[2024-04-17 22:00] LABS: TROPONIN I HIGH SENSITIVITY 5 ng/L (3.0-34)
[2024-04-17] MEDS: ACETAMINOPHEN 325MG TABLET PO ONE (23:27)
[2024-04-18 00:27] LABS: TROPONIN I HIGH SENSITIVITY 5 ng/L (3.0-34)
[2024-04-18 01:10] VITALS: BP 134/77; PULSE 65; RESP 16
== END 2024-04-18 01:12 | disposition home or self-care (01) ==
LOC: ER 20:40
DX: R07.89 Other chest pain (principal); J44.9 Chronic obstructive pulmonary disease, unspecified; I10 Essential (primary) hypertension; Z90.710 Acquired absence of both cervix and uterus; Z79.899 Other long term (current) drug therapy
CPT/HCPCS: 36415; 71045; 80048; 83880; 84484; 85025; 93005; 99285